=== PATIENT | female | born 1950 | race Caucasian/White ===

== ENCOUNTER → 2017-02-28 | Outpatient (CLI) | payer OTHER ==
[~2017-02-28] MED LIST: ALEVE PO; ALEVE220 M1 PO; ASPIRIN81 M2 PO; CALTRATE PLUS T1 TAB PO; DOCUSATE SODIU100 MG PO; FORTAMET1000 MG/B1 PO; GLUCOTROL PO; HYDROCODON-ACE1 EACH PO; IRON PO; KEFLEX500 MG PO; LIPITOR40 MG PO; NABUMETONE PO; PERCOCET 5/321 UDTAB DOB; PREVACID PO; QUINAPRIL HCL5 MG PO; SIMVASTATIN20 MG PO
--- NOTE | ~2017-02-28 | MY11 ---
[facility] A Service of [facility] & [facility] RADIOLOGY TEXT RESULTS PATIENT: BROCK MORAES LOCATION: [facility] : 50 UNIT #: [id number] AGE: [address]: Diann Levy MD SEX: F ORDER DR: [id number] [facility] [address] [place], [place] [address] [id number] O MR#: [id number] Acc #: [id number] NAME: BROCK MORAES. : 1950 SEX: F STUDY DATE/TIME: 02/28/2017 10:00 UNIT: [facility] ROOM: STUDY DESCRIPTION: MY Mammogram Screening Dig Joshua Attending Physician: Diann Levy M.D. Referring Physician: Diann Levy M.D. Ordering Physician: Diann Levy M.D. Primary Care Physician: Diann Levy M.D. MEDICAL IMAGING REPORT This report is preliminary unless electronic signature is present EXAM Screening mammogram, 02/28 HISTORY 66-year-old with no personal history but a positive family history of breast cancer. No current complaints. FINDINGS Routine digital screening views of both breasts were obtained. The study was reviewed with an FDA-approved CAD device. Comparison is made with 02/23/2016, 06/10/2014, 10/29/2011, and 11/21/2010. Breast parenchyma shows scattered fibroglandular densities. No suspicious microcalcifications are seen. There is a nodular asymmetry in the right breast about 2.0 cm deep to the nipple on the MLO view. Follow-up with spot compression views and a true lateral view recommended. Ultrasound may be needed. Scattered benign calcifications are present in both breasts. IMPRESSION 1. Benign left mammogram. 2. Nodular asymmetry deep to the right nipple on the MLO view. Additional imaging recommended. Patients over the age of 40 are entered into a reminder system with target due date for the next mammogram. A result letter will also be sent to the patient. BIRADS 0 Incomplete: Need Additional Imaging Evaluation and/or Prior Mammograms for Comparison STS. [facility] A Service of [facility] & [facility] RADIOLOGY TEXT RESULTS PATIENT: BROCK MORAES LOCATION: [facility] #: [id number] : 50 UNIT #: [id number] AGE: [address]: Diann Levy MD SEX: F ORDER DR: Dictated by... Issa Osborne Jr., M.D. THIS IS AN ELECTRONICALLY VERIFIED REPORT Issa Osborne Jr., M.D. at 02/28/2017 12:31 PM CANDICE/alec TD: 02/28/2017 11:13 JOB #: [id number] MEDICAL IMAGING REPORT Page 1 of 1 COPY
== END | disposition home or self-care (01) ==
LOC: CWCC 09:32
DX: Z12.31 Encounter for screening mammogram for malignant neoplasm of breast (principal); Z80.3 Family history of malignant neoplasm of breast; N63 Unspecified lump in breast
CPT/HCPCS: G0202

== ENCOUNTER → 2017-03-13 | Outpatient (CLI) | payer OTHER ==
--- NOTE | ~2017-03-13 | MY8 ---
[facility] A Service of [facility] & [facility] RADIOLOGY TEXT RESULTS PATIENT: BROCK MORAES LOCATION: [facility] : 50 UNIT #: [id number] AGE: [address]: Diann Levy MD SEX: F ORDER DR: [id number] [facility] [address] [place], [place] [address] [id number] O MR#: [id number] Acc #: [id number] NAME: BROCK MORAES. : 1950 SEX: F STUDY DATE/TIME: 03/13/2017 12:06 UNIT: [facility] ROOM: STUDY DESCRIPTION: MY Mammogram Dx Dig Rt Attending Physician: Diann Levy M.D. Ordering Physician: Diann Levy M.D. Primary Care Physician: Diann Levy M.D. MEDICAL IMAGING REPORT This report is preliminary unless electronic signature is present EXAM Diagnostic right mammogram 03/13 INDICATIONS Patient presents for early recall imaging of a nodular asymmetry in the right breast on recent screening exam. FINDINGS Spot compression right CC and MLO views were obtained and additional standard true lateral view. Study reviewed with an FDA-approved CAD device. Comparison is made with 02/28/2017, 02/23/2016, 06/10/2014, 10/29/2011. No abnormalities identified on the CC and ML views from today. The area of asymmetry effaces on the spot compression MLO view today. Ultrasound was performed. Ultrasound reveals no suspicious findings in the anterior breast. There is an 8 mm cyst as an incidental finding. Findings were discussed with the patient at the time of her examination today. IMPRESSION Benign right mammogram and targeted right ultrasound. Patient should continue rib with routine yearly mammographic screening. BIRADS II. Dictated by... Issa Osborne Jr., M.D. THIS IS AN ELECTRONICALLY VERIFIED REPORT Issa Osborne Jr., M.D. at 03/13/2017 4:45 PM CANDICE/norma TD: 03/13/2017 13:05 [facility] A Service of [facility] & [facility] RADIOLOGY TEXT RESULTS PATIENT: BROCK MORAES LOCATION: [facility] #: [id number] : 50 UNIT #: [id number] AGE: [address]: Diann Levy MD SEX: F ORDER DR: JOB #: [id number] MEDICAL IMAGING REPORT Page 1 of 1 COPY
--- NOTE | ~2017-03-13 | US24 ---
[facility] A Service of [facility] & [facility] RADIOLOGY TEXT RESULTS PATIENT: BROCK MORAES LOCATION: [facility] : 50 UNIT #: [id number] AGE: [address]: Diann Levy MD SEX: F ORDER DR: [id number] [facility] [address] [place], [place] [address] [id number] O MR#: [id number] Acc #: [id number] NAME: BROCK MORAES : 1950 SEX: F STUDY DATE/TIME: 03/13/2017 12:25 UNIT: [facility] ROOM: STUDY DESCRIPTION: US Breast Unilateral Attending Physician: Diann Levy M.D. Ordering Physician: Diann Levy M.D. Primary Care Physician: Diann Levy M.D. MEDICAL IMAGING REPORT This report is preliminary unless electronic signature is present EXAM Right breast ultrasound 03/13 INDICATIONS Abnormal mammogram. Followup nodular asymmetry. FINDINGS For a full report, please see the mammogram report dated 03/13/2017. BIRADS: 2 - benign findings. Dictated by... Issa Osborne Jr., M.D. THIS IS AN ELECTRONICALLY VERIFIED REPORT Issa Osborne Jr., M.D. at 03/13/2017 4:45 PM CANDICE/rodrigo TD: 03/13/2017 13:04 JOB #: [id number] MEDICAL IMAGING REPORT Page 1 of 1 COPY
== END | disposition home or self-care (01) ==
LOC: CMAM 11:38
DX: R92.8 Other abnormal and inconclusive findings on diagnostic imaging of breast (principal)
CPT/HCPCS: 76641; G0206